=== PATIENT | male | born 1965 | race Caucasian/White ===

== ENCOUNTER 2022-07-03 18:31 | Emergency (ER) | payer OTHER ==
[2022-07-03] MEDS ORDERED: TETANUS/DIPHTHERIA/PERTUSSIS 0.5 ML SYRINGE IM ONE (18:47)
[2022-07-03] MEDS ORDERED: HYDROmorphone 1 MG/ML CARPUJECT IVP STA (18:47)
--- NOTE | 2022-07-03 18:50 | ED Physician Documentation ---
History of Present Illness - Stated complaint Stated Complaint: FACIAL DOG BITE - Chief complaint Chief Complaint: Laceration - Additonal information Additional information: 56-year-old male presents to the emergency department for evaluation of a dog bite laceration. He states that his son has not lost his dog bit his lip. Patient is uncertain of his last tetanus status. Son-in-law reports that the Dog has fully up-to-date immunizations and was not behaving ill. Review of Systems Constitutional: denies: Fever Cardiac: reports: Reviewed and negative Skin: reports: Laceration (s) PD PAST MEDICAL HISTORY - Present Medications Home Medications: Ambulatory Orders Medication Instructions Recorded Confirmed Rosuvastatin Calcium [Crestor] 10 mg ORAL DAILY 07/03/22 07/03/22 - Allergies Allergies/Adverse Reactions: Allergies Allergy/AdvReac Type Severity Reaction Status Date / Time No Known Drug Allergies Allergy Verified 07/03/22 18:54 PD ED PE NORMAL - General General: Alert and oriented X 3. 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 The dog's immunizations are up-to-date. We did update the patient's tetanus today. Unfortunately this is a macerated gaping lip laceration with significant amount of tissue loss. I feel that this would best be closed with plastics/OMFS. Therefore utilizing HIPAA protocol I did send pictures of the laceration to [facility] and subsequently spoke on the phone with Dr. Newman With maxillofacial services. She agrees to accept the patient in transfer. She requested we administer Unasyn in addition to the ceftriaxone. She also requested Xeroform be placed over the laceration which I have also done. I discussed the plan to transfer the patient to [facility] via S with the patient and his daughter and they are in agreement for transfer. Appropriate COBRA paperwork completed. Departure - Departure Disposition: 02 Transfer Acute Care [facility]osp Clinical Impression: Dog bite Qualifiers: Encounter type: initial encounter Qualified Code(s): W54.0XXA - Bitten by dog, initial encounter Lip laceration Qualifiers: Encounter type: initial encounter Qualified Code(s): S01.511A - Laceration without foreign body of lip, initial encounter Condition: Stable
[2022-07-03] MEDS ORDERED: cefTRIAXone 1 GM in SODIUM CHLORIDE 0.9% MINIBAG 100 ML IV STA (18:58)
[2022-07-03] MEDS ORDERED: cefTRIAXone 1 GM VIAL ONE (19:04)
[2022-07-03] MEDS ORDERED: AMPICILLIN/SULBACTAM 3 GM in SODIUM CHLORIDE 0.9% MINIBAG 100 ML IV STA (19:50)
[2022-07-03 20:14] VITALS: BP 148/88
== END 2022-07-03 21:00 | disposition short-term general hospital (02) ==
LOC: ED 18:31
DX: S01.551A Open bite of lip, initial encounter (principal); W54.0XXA Bitten by dog, initial encounter; I10 Essential (primary) hypertension; Z23 Encounter for immunization; Z20.822 Contact with and (suspected) exposure to COVID-19; Z79.899 Other long term (current) drug therapy
CPT/HCPCS: 87635; 90471; 90715; 96365; 96375; 99284; 99285; J1170

== ENCOUNTER 2022-07-03 20:58 | Outpatient (CLI) | payer OTHER | END 2022-07-03 23:59 | disposition short-term general hospital (02) | LOC: EMS 20:58 | PROVIDERS: ATTEND Registered Nurse | DX: S01.551A Open bite of lip, initial encounter (principal); W54.0XXA Bitten by dog, initial encounter | CPT/HCPCS: A0425; A0428 ==